=== PATIENT | male | born 1960 | race American Indian/Alaskan Native ===

== ENCOUNTER 2019-02-10 17:13 | Emergency (ER) | payer OTHER, BC ==
[2019-02-10 17:22] VITALS: BP 120/79
--- NOTE | 2019-02-10 17:22 | Event Note ---
ED Screening Note Date of service: 02/10/19 Time: 17:19 ED Screening Note: 59 y/o male comes in for difficulties to tell history. This initial assessment/diagnostic orders/clinical plan/treatment(s) is/are subject to change based on patients health status, clinical progression and re-assessment by fellow clinical providers in the ED. Further treatment and workup at subsequent clinical providers discretion. Patient/guardian urged not to elope from the ED as their condition may be serious if not clinically assessed and managed. Initial orders include:
[2019-02-10] MEDS ORDERED: IBUPROFEN PO ONE (19:05)
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
== END 2019-02-10 20:56 | disposition home or self-care (01) ==
LOC: ED 17:13
DX: S13.4XXA Sprain of ligaments of cervical spine, initial encounter (principal); S00.03XA Contusion of scalp, initial encounter; G43.909 Migraine, unspecified, not intractable, without status migrainosus; V49.49XA Driver injured in collision with other motor vehicles in traffic accident, initial encounter; Y93.89 Activity, other specified; Y92.488 Other paved roadways as the place of occurrence of the external cause; Y99.8 Other external cause status
CPT/HCPCS: 70450; 72125

== ENCOUNTER 2020-02-07 11:11 | Emergency (ER) | payer BC ==
--- NOTE | 2020-02-07 14:20 | Emergency Department Report ---
Blank Doc - Documentation Documentation: 60-year-old male that presents with right wrist pain after twisting it at work. This initial assessment/diagnostic orders/clinical plan/treatment(s) is/are subject to change based on patient's health status, clinical progression and re- assessment by fellow clinical providers in the ED. Further treatment and workup at subsequent clinical providers discretion. Patient/guardians urged not to elope from the ED as their condition may be serious if not clinically assessed and managed. Initial orders include: 1- Patient sent to [facility] for further evaluation and treatment 2- xrays
--- NOTE | 2020-02-07 14:59 | XRay Report ---
RIGHT WRIST 4 VIEWS 1447 INDICATION: wrist pain COMPARISON: None available. FINDINGS: No fractures or dislocations are seen. No significant arthritic changes are noted. Signer Name: Agustin Norman MD Signed: 02/07/2020 2:54 PM Workstation Name: [id number]
--- NOTE | 2020-02-07 20:44 | Emergency Department Report ---
ED Upper Extremity Inj HPI - General Chief Complaint: Extremity Injury, Lower Stated Complaint: WRIST PAIN Time Seen by Provider: 02/07/20 14:19 Source: patient Mode of arrival: Ambulatory Limitations: No Limitations - History of Present Illness Initial Comments: 60-year-old male presents to ED with right wrist pain following injury at work on yesterday. MD Complaint: Injury to:: right, wrist -: days(s) (1) Other Extremity Injury: Wrist: Right Other Injuries: none Place: work Improves With: immobilization Worsens With: movement of extremity Context: other Associated Symptoms: denies: weakness, numbness - Related Data Previous Rx's Medication Instructions Recorded Last Taken Type Cyclobenzaprine [Flexeril] 10 mg PO QHS PRN #10 tablet 02/10/19 Unknown Rx Ibuprofen [Motrin] 600 mg PO Q8H PRN #20 tablet 02/10/19 Unknown Rx Naproxen [Naprosyn] 500 mg PO BID #20 tablet 02/07/20 Unknown Rx Allergies Allergy/AdvReac Type Severity Reaction Status Date / Time No Known Allergies Allergy Verified 02/10/19 17:14 ED Review of Systems ROS: Stated complaint: WRIST PAIN Other details as noted in HPI Comment: All other systems reviewed and negative Musculoskeletal: as per HPI Neurological: denies: numbness, paresthesias ED Past Medical Hx - Past Medical History Previous Medical History?: No Hx Headaches / Migraines: Yes (aneursym) - Surgical History Past Surgical History?: No - Social History Smoking Status: Unknown if ever smoked Substance Use Type: None - Medications Home Medications: Home Medications Medication Instructions Recorded Confirmed Last Taken Type Cyclobenzaprine [Flexeril] 10 mg PO QHS PRN #10 tablet 02/10/19 Unknown Rx Ibuprofen [Motrin] 600 mg PO Q8H PRN #20 tablet 02/10/19 Unknown Rx Naproxen [Naprosyn] 500 mg PO BID #20 tablet 02/07/20 Unknown Rx ED Physical Exam - General Limitations: No Limitations General appearance: alert, in no apparent distress - Head Head exam: Present: atraumatic - Eye Eye exam: Present: normal appearance, EOMI - ENT ENT exam: Present: mucous membranes moist - Neck Neck exam: Present: normal inspection - Respiratory Respiratory exam: Present: normal lung sounds bilaterally. Absent: respiratory distress - Cardiovascular Cardiovascular Exam: Present: regular rate, normal rhythm - GI/Abdominal GI/Abdominal exam: Absent: distended - Extremities Exam Extremities exam: Present: normal inspection, other (No swelling or deformity noted to right wrist, range of motion intact) - Neurological Exam Neurological exam: Present: alert, oriented X3. Absent: motor sensory deficit - Psychiatric Psychiatric exam: Present: normal affect, normal mood - Skin Skin exam: Present: warm, dry, intact, normal color ED Medical Decision Making - Radiology Data Radiology results: report reviewed, image reviewed - Medical Decision Making Patient sustained injury to right wrist on yesterday. X-rays are unremarkable, no evidence of fracture or dislocation. Patient will be discharged with pain medication. Outpatient follow-up information for orthopedics provided. - Differential Diagnosis fracture, sprain, dislocation Critical care attestation.: If time is entered above; I have spent that time in minutes in the direct care of this critically ill patient, excluding procedure time. ED Disposition Clinical Impression: Right wrist sprain Disposition: DC- TO HOME OR SELFCARE Is pt being admited?: No Condition: Stable Instructions: Wrist Sprain (ED) Prescriptions: Naproxen [Naprosyn] 500 mg PO BID #20 tablet Referrals: JACOB BROWN MD [Staff Physician] - as needed Time of Disposition: 20:44
[2020-02-08 07:34] VITALS: BP 115/56
== END 2020-02-07 21:13 | disposition home or self-care (01) ==
LOC: ED 11:11
DX: S63.501A Unspecified sprain of right wrist, initial encounter (principal); Z79.899 Other long term (current) drug therapy; X58.XXXA Exposure to other specified factors, initial encounter; Y93.89 Activity, other specified; Y92.89 Other specified places as the place of occurrence of the external cause; Y99.8 Other external cause status
CPT/HCPCS: 99283

== ENCOUNTER 2020-08-06 12:18 | Emergency (ER) | payer BC ==
[2020-08-06] MEDS ORDERED: ACETAMINOPHEN 325 MG TAB PO ONE (12:35)
--- NOTE | 2020-08-06 12:35 | Emergency Department Report ---
- General Chief Complaint: Pain General Stated Complaint: FEVER/BODYACHE/EARACHE/BODY WEAK Time Seen by Provider: 08/06/20 12:33 Source: patient Mode of arrival: Ambulatory Limitations: No Limitations - History of Present Illness Initial Comments: Patient is a 60-year-old male presents emergency room complaints of generalized body aches, headache, chills, left ear pain for a week. he denies any nasal congestion or rhinorrhea , no CP, no abd pain, no SOB. PMHx none/ no allergies to meds. non smoker.no ETOH. no sick contact. no recent travel. 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 - Related Data Previous Rx's Medication Instructions Recorded Last Taken Type Cyclobenzaprine [Flexeril] 10 mg PO QHS PRN #10 tablet 02/10/19 Unknown Rx Ibuprofen [Motrin] 600 mg PO Q8H PRN #20 tablet 02/10/19 Unknown Rx Naproxen [Naprosyn] 500 mg PO BID #20 tablet 02/07/20 Unknown Rx Azithromycin [Zithromax Z-EDGARDO] 250 mg PO DAILY 5 Days #6 tablet 08/06/20 Unknown Rx Doxycycline Hyclate [Doxycycline 100 mg PO BID 7 Days #14 tab 08/06/20 Unknown Rx Hyclate TAB] guaiFENesin ER [Mucinex ER] 600 mg PO Q12H #14 tablet.er 08/06/20 Unknown Rx Allergies Allergy/AdvReac Type Severity Reaction Status Date / Time No Known Allergies Allergy Verified 02/10/19 17:14 ED Review of Systems ROS: Stated complaint: FEVER/BODYACHE/EARACHE/BODY WEAK Other details as noted in HPI Comment: All other systems reviewed and negative ED Past Medical Hx - Past Medical History Previous Medical History?: Yes Hx Headaches / Migraines: Yes (aneursym) - Surgical History Past Surgical History?: No - Social History Smoking Status: Never Smoker Substance Use Type: Other - Medications Home Medications: Home Medications Medication Instructions Recorded Confirmed Last Taken Type Cyclobenzaprine [Flexeril] 10 mg PO QHS PRN #10 tablet 02/10/19 Unknown Rx Ibuprofen [Motrin] 600 mg PO Q8H PRN #20 tablet 02/10/19 Unknown Rx Naproxen [Naprosyn] 500 mg PO BID #20 tablet 02/07/20 Unknown Rx Azithromycin [Zithromax Z-EDGARDO] 250 mg PO DAILY 5 Days #6 tablet 08/06/20 Unknown Rx Doxycycline Hyclate [Doxycycline 100 mg PO BID 7 Days #14 tab 08/06/20 Unknown Rx Hyclate TAB] guaiFENesin ER [Mucinex ER] 600 mg PO Q12H #14 tablet.er 08/06/20 Unknown Rx ED Physical Exam - General Limitations: No Limitations General appearance: alert, in no apparent distress - Head Head exam: Present: atraumatic, normocephalic - Eye Eye exam: Present: normal appearance - ENT ENT exam: Present: normal orophraynx, mucous membranes moist, TM's normal bilaterally, normal external ear exam - Respiratory Respiratory exam: Present: normal lung sounds bilaterally. Absent: respiratory distress, wheezes, rales, rhonchi, chest wall tenderness, accessory muscle use, decreased breath sounds, prolonged expiratory - Cardiovascular Cardiovascular Exam: Present: regular rate, normal rhythm, normal heart sounds. Absent: systolic murmur, diastolic murmur, rubs, gallop - Neurological Exam Neurological exam: Present: alert, oriented X3 - Psychiatric Psychiatric exam: Present: normal affect, normal mood - Skin Skin exam: Present: warm, dry, intact ED Course Vital Signs 08/06/20 08/06/20 08/06/20 12:22 12:37 13:37 Temperature 100.5 F H Pulse Rate 102 H Respiratory 20 18 18 Rate Blood Pressure 103/64 Blood Pressure [Right] O2 Sat by Pulse 100 Oximetry 08/06/20 08/06/20 14:10 15:17 Temperature 99.6 F Pulse Rate 93 H Respiratory 20 Rate Blood Pressure Blood Pressure 96/60 100/63 [Right] O2 Sat by Pulse 97 Oximetry ED Medical Decision Making - Lab Data Result diagrams: 08/06/20 14:24 08/06/20 14:24 Labs 08/06/20 08/06/20 14:24 14:24 WBC 3.7 L RBC 4.99 Hgb 15.1 Hct 43.6 MCV 87 MCH 30 MCHC 35 H RDW 13.5 Plt Count 183 [place] % (Auto) [place] Supervisor Add Manual Diff Complete Total Counted 100 Seg Neuts % (Manual) 47.0 Lymphocytes % (Manual) 30.0 Reactive Lymphs % (Man) 3.0 Monocytes % (Manual) 20.0 H Nucleated RBC % Not Reportable Seg Neutrophils # Man 1.7 L Band Neutrophils # 0.0 Lymphocytes # (Manual) 1.1 L Abs React Lymphs (Man) 0.1 Monocytes # (Manual) 0.7 Eosinophils # (Manual) 0.0 Basophils # (Manual) 0.0 Metamyelocytes # 0.0 Myelocytes # 0.0 Promyelocytes # 0.0 Blast Cells # 0.0 WBC Morphology Not Reportable Hypersegmented Neuts Not Reportable Hyposegmented Neuts Not Reportable Hypogranular Neuts Not Reportable Smudge Cells Not Reportable Toxic Granulation Not Reportable Toxic Vacuolation Not Reportable Dohle Bodies Not Reportable Pelger-Huet Anomaly Not Reportable Pat Rods Not Reportable Platelet Estimate Consistent w auto Clumped Platelets Not Reportable Plt Clumps, EDTA Not Reportable Large Platelets Not Reportable Giant Platelets Not Reportable Platelet Satelliting Not Reportable Plt Morphology Comment Not Reportable RBC Morphology Normal Dimorphic RBCs Not Reportable Polychromasia Not Reportable Hypochromasia Not Reportable Poikilocytosis Not Reportable Anisocytosis Not Reportable Microcytosis Not Reportable Macrocytosis Not Reportable Spherocytes Not Reportable Pappenheimer Bodies Not Reportable Sickle Cells Not Reportable Target Cells Not Reportable Tear Drop Cells Not Reportable Ovalocytes Not Reportable Helmet Cells Not Reportable [place] Bodies Not Reportable [place] Rings Not Reportable [place] Cells Not Reportable Bite Cells Not Reportable Crenated Cell Not Reportable Elliptocytes Not Reportable Acanthocytes (Spur) Not Reportable Rouleaux Not Reportable Hemoglobin C Crystals Not Reportable Schistocytes Not Reportable Malaria parasites Not Reportable [place] Bodies Not Reportable Hem Pathologist Commnt No Sodium 134 L Potassium 3.8 Chloride 99.1 Carbon Dioxide 23 Anion Gap 16 BUN 10 Creatinine 1.2 Estimated GFR > 60 BUN/Creatinine Ratio 8 Glucose 122 H Calcium 8.9 Total Bilirubin 0.50 AST 76 H ALT 72 H Alkaline Phosphatase 44 Total Protein 7.2 Albumin 4.2 Albumin/Globulin Ratio 1.4 Vital Signs 08/06/20 08/06/20 08/06/20 12:22 12:37 13:37 Temperature 100.5 F H Pulse Rate 102 H Respiratory 20 18 18 Rate Blood Pressure 103/64 Blood Pressure [Right] O2 Sat by Pulse 100 Oximetry 08/06/20 08/06/20 14:10 15:17 Temperature 99.6 F Pulse Rate 93 H Respiratory 20 Rate Blood Pressure Blood Pressure 96/60 100/63 [Right] O2 Sat by Pulse 97 Oximetry - Radiology Data Radiology results: report reviewed Ordering Physician: BETH CAMPBELL Date of Service: 08/06/20 Procedure(s): XR chest routine 2V Accession Number(s): [id number] cc: BETH CAMPBELL Fluoro Time In Minutes: CHEST PA AND LATERAL VIEWS INDICATION: cough, fever. COMPARISON: None. FINDINGS: Support devices: None. Heart: Within normal limits. Lungs/Pleura: There is ill-defined airspace disease within the inferior left lung. Right lung is clear. No pleural abnormality. IMPRESSION: 1. Lingular pneumonia. Signer Name: Albaro Zraco MD Signed: 08/06/2020 1:47 PM Workstation Name: [id number] Transcribed By: BRYN Dictated By: Albaro Zarco MD Electronically Authenticated By: Albaro Zarco MD Signed Date/Time: 08/06/20 134 DD/ 1346 TD/TT: - Medical Decision Making Patient is a 60-year-old male presents emergency room complaints of generalized body aches, headache, chills, left ear pain for a week. he denies any nasal congestion or rhinorrhea , no CP, no abd pain, no SOB. PMHx none/ no allergies to meds. non smoker.no ETOH. no sick contact. no recent travel. 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 Initial vitals with fever and tachycardia which improved upon Tylenol administration. On repeat of blood pressure blood pressure was mildly decreased, given 1 L of IV fluids and blood pressure improved. CXR: 1. Lingular pneumonia. labs are stable. pt given prescription for doxycycline, azithromycin, Mucinex. Advised patient please take medication as prescribed. Please increase your fluid intake over the next several days. Follow-up with a primary care doctor for reexamination. Return to emergency room immediately for any new or worsening symptoms including but not limited to difficulty breathing, shortness of breath, severe chest pain, unable to tolerate by mouth intake, etc. Please self quarantine for 10 days from the onset of your symptoms. Please do not go out in public. If you are around others at home please wear a mask. If you need to cough or sneeze please do so in a napkin and immediately throw it away and immediately wash your hands. Wash your hands frequently. Wipe everything down. Recommend for you to get COVID-19 testing, may have this done at primary care doctor, health department, [facility],etc. - Differential Diagnosis URI, PNA, acute bronchitis, viral syndrome, COVID-19 Critical care attestation.: If time is entered above; I have spent that time in minutes in the direct care of this critically ill patient, excluding procedure time. ED Disposition Clinical Impression: Pneumonia Qualifiers: Pneumonia type: due to unspecified organism Laterality: left Lung location: lower lobe of lung Qualified Code(s): J18.9 - Pneumonia, unspecified organism Disposition: TO HOME OR SELFCARE Is pt being admited?: No Does the pt Need Aspirin: No Condition: Stable Instructions: Community-Acquired Pneumonia, Adult, Bacterial Pneumonia (ED) Additional Instructions: please take medication as prescribed. Please increase your fluid intake over the next several days. Follow-up with a primary care doctor for reexamination. Return to emergency room immediately for any new or worsening symptoms including but not limited to difficulty breathing, shortness of breath, severe chest pain, unable to tolerate by mouth intake, etc. Please self quarantine for 10 days from the onset of your symptoms. Please do not go out in public. If you are around others at home please wear a mask. If you need to cough or sneeze please do so in a napkin and immediately throw it away and immediately wash your hands. Wash your hands frequently. Wipe everything down. Recommend for you to get COVID-19 testing, may have this done at primary care doctor, health depa rtment, [facility],etc. Prescriptions: Doxycycline Hyclate [Doxycycline Hyclate TAB] 100 mg PO BID 7 Days #14 tab guaiFENesin ER [Mucinex ER] 600 mg PO Q12H #14 tablet.er Azithromycin [Zithromax Z-EDGARDO] 250 mg PO DAILY 5 Days #6 tablet Referrals: QIAN SAM MD [Primary Care Provider] - 2-3 Days LOIS LEON MD [Staff Physician] - 2-3 Days [facility] [Provider Group] - 2-3 Days Forms: Work/School Release Form(ED) Time of Disposition: 13:58 Print Language: BENGALI
--- NOTE | 2020-08-06 13:51 | XRay Report ---
CHEST PA AND LATERAL VIEWS INDICATION: cough, fever. COMPARISON: None. FINDINGS: Support devices: None. Heart: Within normal limits. Lungs/Pleura: There is ill-defined airspace disease within the inferior left lung. Right lung is romeo r. No pleural abnormality. IMPRESSION: 1. Lingular pneumonia. Signer Name: Albaro Zarco MD Signed: 08/06/2020 1:47 PM Workstation Name: [id number]
[2020-08-06] MEDS ORDERED: SODIUM CHLORIDE 0.9% 1000 ML 1,000 ML IV ONE (14:15)
[2020-08-06 14:44] LABS: Hematocrit 43.6 % (35.5-45.6); Hemoglobin 15.1 gm/dl (11.8-15.2); Mean Corpuscular HGB Conc 35 % (32-34); Mean Corpuscular Volume 87 fl (84-94); Platelet Count 183 K/mm3 (140-440); Red Blood Count 4.99 M/mm3 (3.65-5.03); Red Cell Distribution Width 13.5 % (13.2-15.2)
[2020-08-06 14:51] LABS: Alanine Aminotransferase 72 units/L (7-56); Albumin 4.2 g/dL (3.9-5); BUN/Creatinine Ratio 8; Blood Urea Nitrogen 10 mg/dL (9-20); Calcium 8.9 mg/dL (8.4-10.2); Hemolysis Index 8
[2020-08-06 15:17] VITALS: BP 100/63
[2020-08-06 15:58] LABS: Total Cells Counted 100
[2020-08-06 16:03] LABS: Platelet Estimate Consistent w Auto; RBC Morphology Normal
== END 2020-08-06 15:46 | disposition home or self-care (01) ==
LOC: ED 12:18
DX: J18.9 Pneumonia, unspecified organism (principal); G43.909 Migraine, unspecified, not intractable, without status migrainosus; Z79.899 Other long term (current) drug therapy
CPT/HCPCS: 36415; 71046; 80053; 85007; 85025; 96360; 99284; J7030